=== PATIENT | male | born 1995 | race African-American/Black ===

== ENCOUNTER 2018-03-14 03:09 | Emergency (ER) | payer SELFPAY ==
[2018-03-14 03:11] VITALS: TEMP 36.7
--- NOTE | 2018-03-14 03:29 | EMERGENCY ROOM VISIT NOTE ---
History Report prepared by Radha: J Luis Bledsoe Under the Supervision of: Dr. Bridgette Gómez D.O. First contact with patient: 03:13 Chief Complaint: CARDIAC ASSESSMENT Stated Complaint: SHORTNESS OF BREATH,HEART PROBLEMS History of Present Illness The patient is a 22 year old male who presents to the Emergency Room with complaints of intermittent trouble breathing beginning 2 hours ago. The patient states the onset was sudden, and then went away. He reports he tried stretching and doing yoga. The patient notes his symptoms returned and have not gone away. He states he takes Adderall for his ADHD, and he has had ADHD since he was a child. The patient denies a history of this, recent illness, a past medical history, a history of smoking, a family history of cardiac trouble, and recent travel greater than four hours at a time. Source of History: patient Onset: 2 hours ago Position: other (lungs) Quality: other (trouble breathing) Timing: intermittent Note: Denies: recent travel greater than 4 hours at a time Review of Systems See HPI for pertinent positives & negatives. A total of 10 systems reviewed and were otherwise negative. Past Medical & Surgical Medical Problems: (1) ADHD (attention deficit hyperactivity disorder) Family History Patient reports no known family medical history. Social History Smoking Status: Never Smoker Current/Historical Medications No Active Prescriptions or Reported Meds Allergies Coded Allergies: No Known Allergies (Unverified , 03/14/18) Physical Exam Vital Signs Date Time Temp Pulse Resp B/P (MAP) Pulse Ox O2 Delivery O2 Flow Rate FiO2 03/14/18 04:57 89 18 124/89 100 Room Air 03/14/18 03:39 108 22 99 Room Air 03/14/18 03:36 110 03/14/18 03:11 36.7 127 24 154/88 100 Room Air Physical Exam GENERAL: alert, anxious appearing, well nourished, no distress, non-toxic EYE EXAM: normal conjunctiva, PERRL and EOM's grossly intact OROPHARYNX: no exudate, no erythema, lips, buccal mucosa, and tongue normal and mucous membranes are moist NECK: supple, no nuchal rigidity, no adenopathy, non-tender LUNGS: Clear to auscultation. Normal chest wall mechanics, no w/r/r HEART: Tachycardic. no murmurs, S1 normal and S2 normal ABDOMEN: abdomen soft, non-tender, normo-active bowel sounds, no masses, no rebound or guarding. BACK: Back is symmetrical on inspection and there is no deformity, no midline tenderness, no CVA tenderness. SKIN: no rashes and no bruising UPPER EXTREMITIES: upper extremities are grossly normal. FROM, nml pulses. LOWER EXTREMITIES: No pitting edema. FROM, nml pulses. NEURO EXAM: Normal sensorium, cranial nerves II-XII grossly intact, normal speech, no gross weakness of arms, no gross weakness of legs. Medical Decision & Procedures ER Provider Diagnostic Interpretation: X-ray: I interpreted the following studies. Chest: A one view study of the chest was reviewed and was negative for cardiomegaly, focal consolidation, pneumothorax, effusion, pulmonary edema, or wide mediastinum. Laboratory Results 03/14/18 03:35 Red Blood Count 4.79, Mean Corpuscular Volume 77.7, Mean Corpuscular Hemoglobin 27.1, Mean Corpuscular Hemoglobin Concent 34.9, Mean Platelet Volume 8.6, Neutrophils (%) (Auto) 67.2, Lymphocytes (%) (Auto) 20.1, Monocytes (%) (Auto) 11.7, Eosinophils (%) (Auto) 0.4, Basophils (%) (Auto) 0.6, Neutrophils # (Auto ) 3.51, Lymphocytes # (Auto) 1.05, Monocytes # (Auto) 0.61, Eosinophils # (Auto ) 0.02, Basophils # (Auto) 0.03 03/14/18 03:35 Test 03/14/18 03:35 White Blood Count 5.22 K/uL (4.8-10.8) Red Blood Count 4.79 M/uL (4.7-6.1) Hemoglobin 13.0 g/dL (14.0-18.0) Hematocrit 37.2 % (42-52) Mean Corpuscular Volume 77.7 fL (80-100) Mean Corpuscular Hemoglobin 27.1 pg (25-34) Mean Corpuscular Hemoglobin Concent 34.9 g/dl (32-36) Platelet Count 351 K/uL (130-400) Mean Platelet Volume 8.6 fL (7.4-10.4) Neutrophils (%) (Auto) 67.2 % Lymphocytes (%) (Auto) 20.1 % Monocytes (%) (Auto) 11.7 % Eosinophils (%) (Auto) 0.4 % Basophils (%) (Auto) 0.6 % Neutrophils # (Auto) 3.51 K/uL (1.4-6.5) Lymphocytes # (Auto) 1.05 K/uL (1.2-3.4) Monocytes # (Auto) 0.61 K/uL (0.11-0.59) Eosinophils # (Auto) 0.02 K/uL (0-0.5) Basophils # (Auto) 0.03 K/uL (0-0.2) RDW Standard Deviation 36.7 fL (36.4-46.3) RDW Coefficient of Variation 13.0 % (11.5-14.5) Immature Granulocyte % (Auto) 0.0 % Immature Granulocyte # (Auto) 0.00 K/uL (0.00-0.02) Prothrombin Time 11.5 SECONDS (9.0-12.0) Prothromb Time International Ratio 1.1 (0.9-1.1) D-Dimer 330 ug/L FEU (0-500) Anion Gap 11.0 mmol/L (3-11) Estimated GFR () 113.6 Estimated GFR (Non- 98.0 BUN/Creatinine Ratio 6.4 (10-20) Calcium Level 9.3 mg/dl (8.5-10.1) Total Bilirubin 1.2 mg/dl (0.2-1) Aspartate Amino Transf (AST/SGOT) 20 U/L (15-37) Alanine Aminotransferase (ALT/SGPT) 16 U/L (12-78) Alkaline Phosphatase 59 U/L (45-117) Troponin I < 0.015 ng/ml (0-0.045) Pro-B-Type Natriuretic Peptide 23 pg/ml (0-450) Total Protein 8.4 gm/dl (6.4-8.2) Albumin 4.7 gm/dl (3.4-5.0) Globulin 3.7 gm/dl (2.5-4.0) Albumin/Globulin Ratio 1.3 (0.9-2) Laboratory results per my review. Medications Administered Medications (Trade) Dose Ordered Sig/Caitlin Route Start Time Stop Time Status Last Admin Dose Admin Potassium Chloride (Klor-Con M10) 40 meq NOW STAT PO 03/14/18 04:19 03/14/18 04:20 DC 03/14/18 04:59 40 MEQ Hydroxyzine HCl (Vistaril Tab) 25 mg NOW STAT PO 03/14/18 05:07 03/14/18 05:08 DC 03/14/18 05:10 25 MG ECG Per My Interpretation Indication: SOB/dyspnea Rate (beats per minute): 95 Rhythm: sinus rhythm Findings: 1st degree AV block, no acute ischemic change, no ectopy, other ( Normal axis. Normal intervals.) ED Course 0318: The patient was evaluated in room B11B. A complete history and physical exam was performed. 0419: Ordered Potassium Chloride 40 meq PO 0421: I reevaluated the patient and updated him of his current test results. He admits he took 2 Adderall today instead of the singular tablet he is prescribed. He reports he did this to work on his music. He notes he had tingling around his mouth and hands. I discussed the findings and the treatment plan with the patient. He verbalizes agreement and understanding. The patient was discharged home. Medical Decision Differential diagnoses includes but is not limited to pneumonia, bronchitis, COPD/Asthma exacerbation, pneumothorax, pulmonary embolism, congestive heart failure, acute coronary syndrome HEART score 0 Patient here hyperventilating, while patient here he began to have tingling in the hands mild carpal spasm and complain mild tingling of the lips. She was slowly able to be coached into a slower respiratory rate by the nurse as they were obtaining labs. Patient's labs and imaging here are reassuring. Patient did not clinically seem intoxicated or altered on any recreational drugs. Patient nervous about his initial condition however it resolved while he was here. Patient otherwise hemo-dynamically stable throughout. Discussed with him stress reactions and hyperventilation. Discussed management of stress as an outpatient. Discussed symptoms to watch and return for, he verbalized understanding was agreeable with plan. Patient with no risk factors for ACS or PE. No evidence of dysrhythmia or ectopy on telemetry. I do not suspect ACS, PE, tamponade, effusion, pneumothorax, occult pneumonia, pericarditis, myocarditis, perforation, GI bleed, inhalation injury, bronchospasm, dissection , worsening thoracic aneurysm. Likely patient at increased risk for acute panic attack and hyperventilatory reaction due to the fact that he took 2 of his Adderall today instead of 1. Patient's tachycardia improved here with improvement in his anxiety. Patient never hypoxic. Medication Reconcilliation Current Medication List: was personally reviewed by me Blood Pressure Screening Patient's blood pressure: Elevated blood pressure Blood pressure disposition: Elevated BP felt to be situational Impression Primary Impression: Dyspnea Additional Impressions: Tachycardia Stress reaction Scribe Attestation The scribe's documentation has been prepared under my direction and personally reviewed by me in its entirety. I confirm that the note above accurately reflects all work, treatment, procedures, and medical decision making performed by me. Departure Information Dispostion Home / Self-Care Prescriptions No Active Prescriptions or Reported Meds Referrals No Doctor, Assigned (PCP) Forms IMPORTANT VISIT INFORMATION Patient Instructions ED Chest Pain Atypical Unkn Cause, ED Dyspnea Shortness of Breath, ED Hyperventilation Syndrome, My [facility] Additional Instructions Please stay well hydrated. Please avoid caffeine or any other stimulants as this can elevate your heart rate, blood pressure, and breathing rate. Please only take your medications as prescribed. Do not take extra or take it more frequently. Please try to avoid any additional stressors or situations which could provoke additional stress or anxiety. If you have recurrent trouble breathing or chest pain, develop fevers, dizziness, vomiting, swelling in your legs, pain in your calves, numbness or tingling, or you have any other new or concerning symptoms, please return to the emergency room. Problem Qualifiers Primary Impression: Dyspnea Dyspnea type: shortness of breath Qualified Codes: R06.02 - Shortness of breath
[2018-03-14 03:48] LABS: BASO % 0.6 %; BASO ABS # 0.03 K/uL (0-0.2); EOS % 0.4 %; EOS ABS # 0.02 K/uL (0-0.5); HEMATOCRIT 37.2 % (42-52); LYMPH % 20.1 %; LYMPH ABS # 1.05 K/uL (1.2-3.4); MEAN CELL VOLUME 77.7 fL (80-100); MEAN CORPUSCULAR HEMOGLOBIN 27.1 pg (25-34); MEAN CORPUSCULAR HGB CONC 34.9 g/dl (32-36); MEAN PLATELET VOLUME 8.6 fL (7.4-10.4); MONO % 11.7 %; MONO ABS # 0.61 K/uL (0.11-0.59); NEUT % 67.2 %; NEUT ABS # 3.51 K/uL (1.4-6.5); PLATELET COUNT 351 K/uL (130-400); RED CELL DISTRIBUTION WIDTH SD 36.7 fL (36.4-46.3); WHITE BLOOD COUNT 5.22 K/uL (4.8-10.8)
[2018-03-14 04:04] LABS: INR 1.1 (0.9-1.1)
[2018-03-14 04:14] LABS: ALBUMIN 4.7 gm/dl (3.4-5.0); ALKALINE PHOSPHATASE 59 U/L (45-117); ALT/SGPT 16 U/L (12-78); AST/SGOT 20 U/L (15-37); BLOOD UREA NITROGEN 7 mg/dl (7-18); CALCIUM 9.3 mg/dl (8.5-10.1); CARBON DIOXIDE 21 mmol/L (21-32); CREATININE 1.07 mg/dl (0.60-1.40); GLUCOSE 95 mg/dl (70-99); POTASSIUM 3.1 mmol/L (3.5-5.1); SODIUM 135 mmol/L (136-145); TOTAL PROTEIN 8.4 gm/dl (6.4-8.2)
[2018-03-14] MEDS ORDERED: POTASSIUM CHLORIDE 10 MEQ TABCR PO STA (04:19)
[2018-03-14 04:57] VITALS: BP 124/89; PULSE 89; O2SAT 100
[2018-03-14] MEDS: hydrOXYzine HCL 25 MG TAB PO STA ×2 (05:10→05:11)
--- NOTE | 2018-03-14 07:20 | DIAGNOSTIC IMAGING REPORT ---
CHEST ONE VIEW PORTABLE CLINICAL HISTORY: 22 years-old Male presenting with sob. TECHNIQUE: Portable upright AP view of the chest was obtained. COMPARISON: None. FINDINGS: Cardiomediastinal silhouette normal. Lungs and pleural spaces clear. Osseous structures normal. Upper abdomen normal. IMPRESSION: 1. No acute cardiopulmonary disease. Electronically signed by: Krzysztof Wilson M.D. 03/14/2018 7:18 AM Dictated Date/Time: 03/14/2018 6:58 AM
== END 2018-03-14 05:19 | disposition home or self-care (01) ==
LOC: C.EDB 03:10
DX: R06.02 Shortness of breath (principal); R00.0 Tachycardia, unspecified; F43.9 Reaction to severe stress, unspecified; F90.9 Attention-deficit hyperactivity disorder, unspecified type

== ENCOUNTER 2018-03-14 07:56 | Emergency (ER) | payer SELFPAY ==
[2018-03-14 08:05] VITALS: TEMP 36.8
[2018-03-14] MEDS ORDERED: LORAZEPAM 0.5 MG TAB SL STA ×2 (08:05→09:06)
--- NOTE | 2018-03-14 08:08 | EMERGENCY ROOM VISIT NOTE ---
History Report prepared by Radha: Bryce Oneal Under the Supervision of: Dr. Ton Monsalve M.D. First contact with patient: 07:58 Stated Complaint: MENTAL HEALTH History of Present Illness The patient is a 22 year old male who presents to the Emergency Room with complaints of constant difficulty breathing that began last night. The patient checked into the ED for his difficulty breathing last night and was discharged. He now notes that he is having some back pain and has been hyperventilating. He also complains that he is having "tingling in his face and arms." He notes a history of ADHD, but denies any other issues. Source of History: patient Onset: Last night Position: chest (SOB) Quality: other ("tingling" in face and arms) Timing: constant Associated Symptoms: + back pain Review of Systems See HPI for pertinent positives & negatives. A total of 10 systems reviewed and were otherwise negative. Past Medical & Surgical Medical Problems: (1) ADHD (attention deficit hyperactivity disorder) Old medical records were reviewed. Nurse's notes were reviewed and I agree with. Family History Patient reports no known family medical history. Social History Smoking Status: Never Smoker Housing Status: other ([facility]) Current/Historical Medications No Active Prescriptions or Reported Meds Allergies Coded Allergies: No Known Allergies (Unverified , 03/14/18) Physical Exam Vital Signs Date Time Temp Pulse Resp B/P (MAP) Pulse Ox O2 Delivery O2 Flow Rate FiO2 03/14/18 09:16 89 20 160/89 100 Room Air 03/14/18 08:05 36.8 140 24 167/84 100 Room Air Physical Exam General: Non-ill appearing young male. Mildly anxious appearing. HEENT: Normal cephalic atraumatic. Pupils are equal round and reactive to light. Extraocular movements are intact. Oropharynx is pink with moist mucous membranes. No swelling of the mouth lips or tongue. Neck: Supple with a midline trachea. No meningeal signs or stiffness, no JVD or bruits. No Stridor. Chest: Mildly tachycardic. Hyperventilating. Clear to auscultation bilaterally. No wheezes or rhonchi. No increased work of breathing. Heart: regular rate and rhythm. Abdomen: Soft nontender, nondistended without rebound guarding or rigidity. Extremities: No cyanosis clubbing or edema. No calf tenderness or assymetry Spine/Back. Non tender to palpation. No CVA tenderness Skin: Good turgor without rashes. Neurologic exam: Cranial nerves two through 12 are intact. Motor and sensation are intact and symmetrical throughout. Medical Decision & Procedures Laboratory Results 03/14/18 08:37 Red Blood Count 5.06, Mean Corpuscular Volume 77.5, Mean Corpuscular Hemoglobin 27.3, Mean Corpuscular Hemoglobin Concent 35.2, Mean Platelet Volume 8.5, Neutrophils (%) (Auto) 70.8, Lymphocytes (%) (Auto) 19.0, Monocytes (%) (Auto) 9.3, Eosinophils (%) (Auto) 0.2, Basophils (%) (Auto) 0.5, Neutrophils # (Auto) 4.26, Lymphocytes # (Auto) 1.14, Monocytes # (Auto) 0.56, Eosinophils # (Auto) 0.01, Basophils # (Auto) 0.03 03/14/18 08:37 Test 03/14/18 08:37 03/14/18 08:46 White Blood Count 6.01 K/uL (4.8-10.8) Red Blood Count 5.06 M/uL (4.7-6.1) Hemoglobin 13.8 g/dL (14.0-18.0) Hematocrit 39.2 % (42-52) Mean Corpuscular Volume 77.5 fL (80-100) Mean Corpuscular Hemoglobin 27.3 pg (25-34) Mean Corpuscular Hemoglobin Concent 35.2 g/dl (32-36) Platelet Count 363 K/uL (130-400) Mean Platelet Volume 8.5 fL (7.4-10.4) Neutrophils (%) (Auto) 70.8 % Lymphocytes (%) (Auto) 19.0 % Monocytes (%) (Auto) 9.3 % Eosinophils (%) (Auto) 0.2 % Basophils (%) (Auto) 0.5 % Neutrophils # (Auto) 4.26 K/uL (1.4-6.5) Lymphocytes # (Auto) 1.14 K/uL (1.2-3.4) Monocytes # (Auto) 0.56 K/uL (0.11-0.59) Eosinophils # (Auto) 0.01 K/uL (0-0.5) Basophils # (Auto) 0.03 K/uL (0-0.2) RDW Standard Deviation 36.7 fL (36.4-46.3) RDW Coefficient of Variation 13.2 % (11.5-14.5) Immature Granulocyte % (Auto) 0.2 % Immature Granulocyte # (Auto) 0.01 K/uL (0.00-0.02) Anion Gap 11.0 mmol/L (3-11) Estimated GFR () 111.1 Estimated GFR (Non- 95.8 BUN/Creatinine Ratio 6.7 (10-20) Calcium Level 10.5 mg/dl (8.5-10.1) Thyroid Stimulating Hormone (TSH) 9.950 uIu/ml (0.300-4.500) Bedside Troponin I < 0.030 ng/ml (0-0.045) Laboratory studies as stated above per my review. Medications Administered Medications (Trade) Dose Ordered Sig/Caitlin Route Start Time Stop Time Status Last Admin Dose Admin Lorazepam (Ativan Tab) 0.5 mg NOW STAT SL 03/14/18 08:05 03/14/18 08:08 DC 03/14/18 08:05 0.5 MG Lorazepam (Ativan Tab) 0.5 mg NOW STAT SL 03/14/18 09:06 03/14/18 09:07 DC 03/14/18 09:06 0.5 MG Lorazepam (Ativan 1MG Home Pack) 1 homepack UD ONCE PO 03/14/18 10:45 03/14/18 10:47 DC 03/14/18 10:41 1 HOMEPACK ED Course 0800: Past medical records reviewed. The patient was evaluated in room A7, and a complete history and physical examination were performed. 0805: Ordered Ativan 0.5 mg SL. 0906: Ordered Ativan 0.5 mg SL. 0932: He is doing well at this time. 1035: I talked to the police. They state that there is no reason to keep him, they have no warrants. 1045: Ordered Ativan 1 homepack PO. 1049: Upon reevaluation, the patient is resting in bed. I discussed the results and treatment plan with him. He verbalized agreement of the treatment plan. The patient was discharged home. Medical Decision Differential Diagnosis includes; Anxiety, cardiac disease, arrhythmia, pulmonary disease, electrolyte or metabolic abnormality. This patient comes in after complaining of feeling short of breath. he is anxious and was hyperventilating is tingling in his fingers. he was seen by Dr. fraga just several hours ago for the same complaint. He said that he did take 2 Adderall as he was trying to concentrate and finish a project. He normally only takes 1. He has no chest pain. EKG was obtained which shows sinus tachycardia without any definite ischemic changes. No significant prolongation of the QT interval. I reviewed his records from a couple hours ago his d-dimer was negative and his chest x-ray was unremarkable. A repeat of his electrolytes are unremarkable. His troponin is also not elevated again. His TSH is high and he is if anything hypothyroid . I recommend he follow-up for this. He was given Ativan 0.5 mg and was feeling better but still anxious he was given a second dose of Ativan 0.5 mg and felt 100% better he said the Ativan really helped him. I think this is a combination of anxiety and taking too much Adderall on top of that as well. I told him not to take any extra meds. he has had no intentional overdose he did not take any other medication denies suicidal homicidal ideations. I did have our psychiatric piano case and bench assembler to evaluation and he feels that he is safe to go home. The police did bring him and we talked to them at length. They do not feel that they need him back in custody and say that there are no outstanding warrants. They also feel that the name he presented with may be a false name. We told him that he would be released and they said that was fine. The patient was discharged home encouraged and follow his regular doctor in [place]. He was given a home pack of Ativan 1 mg that he is every 8 hours as needed for anxiety. He was warned that it could make him drowsy and do not take before drinking, driving, working. Medication Reconcilliation Current Medication List: was personally reviewed by me Blood Pressure Screening Patient's blood pressure: Elevated blood pressure Impression Primary Impression: Anxiety Additional Impression: SOB (shortness of breath) Scribe Attestation The scribe's documentation has been prepared under my direction and personally reviewed by me in its entirety. I confirm that the note above accurately reflects all work, treatment, procedures, and medical decision making performed by me. Departure Information Dispostion Home / Self-Care Prescriptions No Active Prescriptions or Reported Meds Referrals No Doctor, Assigned (PCP) Forms HOME CARE DOCUMENTATION FORM, IMPORTANT VISIT INFORMATION, WORK / SCHOOL INSTRUCTIONS Patient Instructions My [facility] Additional Instructions Rest. Drink plenty of fluids. Avoid taking any extra medications May use Ativan 1 mg every 8 hours if needed. Ativan may make you drowsy do not take before drinking, driving, working Return if: Fever chills, worsening symptoms, thoughts of hurting yourself or others, chest pain, shortness of breath, any new problems Problem Qualifiers
[2018-03-14 08:47] LABS: BASO % 0.5 %; BASO ABS # 0.03 K/uL (0-0.2); EOS % 0.2 %; EOS ABS # 0.01 K/uL (0-0.5); HEMATOCRIT 39.2 % (42-52); HEMOGLOBIN 13.8 g/dL (14.0-18.0); IG# 0.01 K/uL (0.00-0.02); LYMPH ABS # 1.14 K/uL (1.2-3.4); MEAN CELL VOLUME 77.5 fL (80-100); MEAN CORPUSCULAR HEMOGLOBIN 27.3 pg (25-34); MEAN CORPUSCULAR HGB CONC 35.2 g/dl (32-36); MEAN PLATELET VOLUME 8.5 fL (7.4-10.4); MONO % 9.3 %; MONO ABS # 0.56 K/uL (0.11-0.59); NEUT % 70.8 %; NEUT ABS # 4.26 K/uL (1.4-6.5); PLATELET COUNT 363 K/uL (130-400); RED CELL DISTRIBUTION WIDTH CV 13.2 % (11.5-14.5); RED CELL DISTRIBUTION WIDTH SD 36.7 fL (36.4-46.3); WHITE BLOOD COUNT 6.01 K/uL (4.8-10.8)
[2018-03-14 09:04] LABS: BLOOD UREA NITROGEN 7 mg/dl (7-18); CALCIUM 10.5 mg/dl (8.5-10.1); CARBON DIOXIDE 21 mmol/L (21-32); CREATININE 1.09 mg/dl (0.60-1.40); GLUCOSE 98 mg/dl (70-99); POTASSIUM 3.5 mmol/L (3.5-5.1); SODIUM 137 mmol/L (136-145)
[2018-03-14 09:16] VITALS: BP 160/89; PULSE 89; O2SAT 100
[2018-03-14] MEDS ORDERED: ATIVAN 1MG HOMEPACK PO ONE (10:45)
== END 2018-03-14 10:49 | disposition home or self-care (01) ==
LOC: EDBD 07:56 → C.EDA 07:57
DX: F41.9 Anxiety disorder, unspecified (principal); R06.02 Shortness of breath; F90.9 Attention-deficit hyperactivity disorder, unspecified type